=== PATIENT | female | born 1970 | race Two or more races ===

== ENCOUNTER 2018-10-03 18:55 | Emergency (ER) | payer OTHER ==
[2018-10-03 19:24] VITALS: BP 137/71; PULSE 74; TEMP 98.6; BMI 36.0
== END 2018-10-03 19:39 | disposition home or self-care (01) ==
LOC: FER 18:55
PROC: 2W3QX1Z Immobilization of Right Lower Leg using Splint (ICD-10-PCS; principal; 2018-10-03)
DX: S83.421A Sprain of lateral collateral ligament of right knee, initial encounter (principal); X58.XXXA Exposure to other specified factors, initial encounter; Y93.89 Activity, other specified; Y92.89 Other specified places as the place of occurrence of the external cause; Y99.0 Civilian activity done for income or pay; I34.1 Nonrheumatic mitral (valve) prolapse
CPT/HCPCS: 99282-25